=== PATIENT | male | born 1965 | race Caucasian/White ===

== ENCOUNTER 2022-03-01 16:39 | Outpatient (REF) | payer BC, SELFPAY ==
--- NOTE | ~2022-03-01 | XR_ITS ---
EXAMINATION: XR FOOT, RIGHT CLINICAL INFORMATION: Right foot contusion. COMPARISON: None TECHNIQUE: AP, lateral, and oblique views of the right foot. FINDINGS: The bones and soft tissues are normal. No fracture. Alignment is anatomic. Joint spaces are maintained. XR/XR foot RT min 3V IMPRESSION: Unremarkable right foot.
== END 2022-03-01 16:40 | disposition home or self-care (01) ==
LOC: HO.HMGCX 16:39
PROVIDERS: Visit Provider Internal Medicine
DX: S90.31XA Contusion of right foot, initial encounter (principal)
CPT/HCPCS: 73630

== ENCOUNTER 2022-05-15 13:43 | Outpatient (REF) | payer BC, SELFPAY ==
--- NOTE | ~2022-05-15 | XR_ITS ---
EXAMINATION: XR KNEE, LEFT CLINICAL INFORMATION: Knee pain. COMPARISON: None TECHNIQUE: Four views of the left knee. FINDINGS: There is some minimal narrowing of the medial compartment compared with the lateral indicative of some mild degenerative change. A tiny joint effusion is seen. No other abnormality is detected. XR/XR knee LT 4V IMPRESSION: Mild degenerative changes. No acute disease.
== END 2022-05-15 13:44 | disposition home or self-care (01) ==
LOC: HO.HMGCX 13:43
PROVIDERS: Visit Provider Emergency Medicine
DX: M25.562 Pain in left knee (principal)
CPT/HCPCS: 73564

== ENCOUNTER 2023-07-10 10:45 | Outpatient (AMB) | payer BC, SELFPAY ==
--- NOTE | 2023-07-10 10:49 | AM.OFFWIN_ITS ---
Intake Vital Signs 07/10/23 10:51 Weight 246 lb BP 122/80 Blood Pressure Location Lt brachial Position Sitting Pulse 74 Pulse Source Pulse Oximeter Pulse Oximetry (%) 98 Oxygen Delivery Method Room Air Intake Visit Reasons: ESt/right foot toe pain Intake Note: Patient here for swelling on right foot starting at big toe knuckle and goes across, he states he is able to put a bit of pressure on it but unable to lift it at all. No known injuries. Patient Tobacco Use Status: Never used Tobacco Allergies No Known Allergies Allergy (Verified 07/13/23 11:10) Medication List - Last Reconciled 07/13/23 by Gigi Rivera MD colchicine (gout) 0.6 mg PO DAILY ibuprofen 600 mg PO Q8H PRN lisinopril-hydrochlorothiazide 20-25 mg 1 tab PO DAILY loratadine 10 mg PO DAILY prednisone 60 mg (3 x 20 mg) PO DAILY propranolol ER 160 mg PO DAILY Do you need a note to return to daycare/school/sports/work: No HPI ESt/right foot toe pain HPI Details 57-year-old male presents to the office for a sick visit. Patient is having persistent pain in the right foot for the past month. Does not recall any fall or injury. He had some colchicine left over from a previous gout attack which has not helped. [facility] Social History Patient Tobacco Use Status: Never used Tobacco Physical Exam Vital Signs: Last Vital Signs Pulse 74 07/10/23 10:51 BP 122/80 07/10/23 10:51 Pulse Ox 98 07/10/23 10:51 Oxygen Delivery Method Room Air 07/10/23 10:51 Extrem Other: Right foot: Tenderness over the middle of the foot with a swollen MTP joint. Pain on flexion of the toe Assessment & Plan Assessment & Plan (1) Contusion of foot, right: Code(s): S90.31XA - Contusion of right foot, initial encounter Qualifiers: Encounter type: initial encounter Qualified Code(s): S90.31XA - Contusion of right foot, initial encounter Plan: X-ray images personally reviewed by me. Patient most likely has chronic gout. He needs to be on gout prevention medications. Prednisone has been started. I encouraged him to see his primary care provider. Orders: Orders XR foot RT min 3V 07/10/23 S90.31XA - Contusion of right foot, initial encounter Complete Blood Count no Diff 07/10/23 S90.31XA - Contusion of right foot, initial encounter Basic Metabolic Panel 07/10/23 S90.31XA - Contusion of right foot, initial encounter C Reactive Protein 07/10/23 S90.31XA - Contusion of right foot, initial encounter Uric Acid 07/10/23 S90.31XA - Contusion of right foot, initial encounter Medications: New prednisone 60 mg (3 x 20 mg) PO DAILY 9 tabs 0RF Coding Level of Care Code Est Pt Level 4 (26510) Diagnoses Contusion of right foot, initial encounter S90.31XA Encounter type: initial encounter
[2023-07-10 10:51] VITALS: BP 122/80; PULSE 74; O2SAT 98
== END 2023-07-10 11:38 | disposition home or self-care (01) ==
PROVIDERS: PCP Internal Medicine; Visit Provider Internal Medicine
DX: S90.31XA Contusion of right foot, initial encounter (principal)
CPT/HCPCS: 99214

== ENCOUNTER 2023-07-10 11:23 | Outpatient (REF) | payer BC, SELFPAY ==
--- NOTE | ~2023-07-10 | XR_ITS ---
EXAMINATION: XR FOOT, RIGHT CLINICAL INFORMATION: Right foot contusion. COMPARISON: None available. TECHNIQUE: AP, lateral, and oblique views of the right foot. FINDINGS: No displaced fracture. No dislocation. No significant joint space narrowing or marginal osteophytes. No osseous erosion. Tiny plantar calcaneal spur. XR/XR foot RT min 3V IMPRESSION: 1. No acute fracture or dislocation. 2. Tiny plantar calcaneal spur.
[2023-07-10 13:43] LABS: Hematocrit 44.7 % (42.0-52.0); Mean Corpuscular HGB Conc 35.8 g/dl (31.0-36.0); Mean Corpuscular Volume 86.6 fL (80.0-98.0); Mean Platelet Volume 9.8 fL (9.4-12.4); Platelet Count 276 X10*3/uL (160-400); Red Blood Count 5.16 X10*6/uL (4.60-5.80); Red Cell Distribution Width 12.2 % (11.0-16.0); White Blood Count 6.6 X10*3/uL (4.8-10.8)
[2023-07-10 13:52] LABS: Anion Gap 13 (12-20); Blood Urea Nitrogen 13 mg/dL (9-16); Calcium 10.1 mg/dL (8.4-10.2); Carbon Dioxide 29 mmol/L (22-29); Chloride 101 mmol/L (96-108); Estimated Glomerular Filt Rate > 60; Glucose Random 97 mg/dL (60-115); Sodium 139 mmol/L (135-145)
[2023-07-10 13:59] LABS: Uric Acid 8.8 mg/dL (3.4-7.0)
== END 2023-07-10 11:24 | disposition home or self-care (01) ==
LOC: HO.HMGCX 11:23
PROVIDERS: PCP Internal Medicine; Visit Provider Internal Medicine
DX: S90.31XA Contusion of right foot, initial encounter (principal)
CPT/HCPCS: 36415; 73630; 80048; 84550; 85027; 86140